=== PATIENT | female | born 2000 | race Caucasian/White ===

== ENCOUNTER 2022-05-18 01:34 | Inpatient (IN) | payer BC ==
[~2022-05-18] VITALS: Ht 322.6 cm; Wt 60.3 kg
[2022-05-18] MEDS ORDERED: NALOXONE HCL 0.4 MG/ML 1ML VIAL IV PRN (01:45)
[2022-05-18 02:21] LABS: BASOPHILS % 0.6 % (0.0-2.0); EOSINOPHILS % 0.8 % (0.0-5.0); HEMOGLOBIN. 13.1 g/dL (12.0-16.0); LYMPHOCYTES % 18.1 % (20.0-50.0); MEAN CORPUSCULAR HEMOGLOBIN 31.1 pg (28.0-32.0); MEAN CORPUSCULAR VOLUME 90.4 fL (81.0-99.0); MEAN PLATELET VOLUME 7.9 fl (7.4-10.4); MONOCYTES % 4.9 % (2.0-8.0); NEUTROPHILS % 75.6 % (40.0-76.0); PLATELET 267 x1000/uL (130-400); RED CELL DISTRIBUTION WIDTH 13.6 % (11.6-14.6)
[2022-05-18 02:31] LABS: CHLORIDE 104 mEq/L (98-107)
[2022-05-18 02:40] LABS: ETHANOL BLOOD 175 mg/dL
[2022-05-18 04:29] LABS: INR 1.1; PROTHROMBIN TIME 11.4 sec (9.6-11.0)
[2022-05-18] MEDS ORDERED: ACETYLCYSTEINE IV NR (05:00)
[2022-05-18] MEDS ORDERED: WATER IV NR (05:00)
[2022-05-18] MEDS ORDERED: DEXT 5% IV NR (05:00)
[2022-05-18 05:29] LABS: CLARITY URINE CLEAR (CLEAR); COLOR URINE YELLOW (YELLOW); KETONES URINE TRACE (NEGATIVE); LEUKOCYTE ESTERASE URINE NEGATIVE (NEGATIVE); NITRITE URINE NEGATIVE (NEGATIVE); OCCULT BLOOD URINE 1+ (NEGATIVE); PROTEIN URINE NEGATIVE (NEGATIVE); SPECIFIC GRAVITY URINE 1.004 (1.005-1.030); UROBILINOGEN URINE 0.2 E.U./dL (0.2-1.0)
[2022-05-18 05:44] LABS: *AMPHETAMINES SCREEN URINE NEGATIVE (NEGATIVE); *BARBITURATES SCREEN URINE NEGATIVE (NEGATIVE); *BENZODIAZEPINES SCREEN URINE NEGATIVE (NEGATIVE); *COCAINE SCREEN URINE NEGATIVE (NEGATIVE); CANNABINOID URINE SCREEN NEGATIVE (NEGATIVE); METHADONE URINE SCREEN NEGATIVE (NEGATIVE); PHENCYCLIDINE URINE SCREEN NEGATIVE (NEGATIVE)
[2022-05-18 05:47] LABS: OPIATES URINE SCREEN PRESUMTIVE POSITIVE (NEGATIVE)
[2022-05-18] MEDS ORDERED: ACETYLCYSTEINE INJ 3,000 MG in DEXT 5% WATER 500 ML IV NR (06:00)
[2022-05-18] MEDS ORDERED: MAGNESIUM/ALUMINUM HYDROXIDE/SIMETHICONE 30ML UDC PO PRN (07:30)
[2022-05-18] MEDS ORDERED: GUAIFENESIN 200MG/10ML SUGAR FREE UDC PO PRN (07:30)
[2022-05-18] MEDS ORDERED: CLONIDINE 0.1MG TABLET PO PRN (07:30)
[2022-05-18] MEDS ORDERED: DOCUSATE SODIUM 100MG CAPSULE PO PRN (07:30)
[2022-05-18] MEDS ORDERED: IPRATROPIUM/ALBUTEROL 0.5-3(2.5)MG/3ML NEB NEB PRN (07:30)
[2022-05-18] MEDS ORDERED: NITROGLYCERIN 0.4MG TABLET SL SL PRN (07:30)
[2022-05-18] MEDS ORDERED: ONDANSETRON HCL 4MG/2ML INJ IV PRN (07:30)
[2022-05-18] MEDS ORDERED: MVI, ADULT NO.1 10 ML, FOLIC ACID 1 MG, THIAMINE HCL 100 MG in SODIUM CHLORIDE 0.9% 1,0... IV ONE ×4 (08:00)
[2022-05-18] MEDS: FAMOTIDINE 20MG TABLET PO SCH ×2 (09:00→21:43)
[2022-05-18] MEDS ORDERED: ACETYLCYSTEINE INJ 6,000 MG in DEXTROSE 5% WATER 1,000 ML IV NR (10:00)
[2022-05-18 12:00] VITALS: BP 123/69
[2022-05-18 16:00] VITALS: BP 110/59
[2022-05-18 16:21] VITALS: BP 123/69
[2022-05-18 20:00] VITALS: BP 104/53
[2022-05-18] MEDS ORDERED: ZOLPIDEM TARTRATE 5MG TABLET PO PRN (21:00)
[2022-05-19] VITALS: BP 118/61
[2022-05-19 04:00] VITALS: BP 98/58
[2022-05-19 08:20] VITALS: BP 112/73
[2022-05-19] MEDS: FAMOTIDINE 20MG TABLET PO SCH ×2 (09:40→21:00)
[2022-05-19 10:51] LABS: BASOPHILS % 0.7 % (0.0-2.0); EOSINOPHILS % 5.6 % (0.0-5.0); HEMOGLOBIN. 13.1 g/dL (12.0-16.0); LYMPHOCYTES % 17.9 % (20.0-50.0); MEAN CORPUSCULAR HEMOGLOBIN 30.6 pg (28.0-32.0); MEAN CORPUSCULAR VOLUME 90.9 fL (81.0-99.0); MEAN PLATELET VOLUME 8.4 fl (7.4-10.4); MONOCYTES % 7.3 % (2.0-8.0); NEUTROPHILS % 68.5 % (40.0-76.0); PLATELET 253 x1000/uL (130-400); RED BLOOD CELL COUNT 4.29 mill/uL (4.2-5.4); RED CELL DISTRIBUTION WIDTH 13.8 % (11.6-14.6)
[2022-05-19 10:53] LABS: CHLORIDE 109 mEq/L (98-107)
[2022-05-19 11:00] LABS: PHOSPHORUS 2.6 mg/dL (2.5-4.9)
[2022-05-19 12:00] VITALS: BP 104/56
[2022-05-19 16:26] VITALS: BP 110/74
[2022-05-20 05:57] LABS: CHLORIDE 111 mEq/L (98-107)
[2022-05-20 09:13] VITALS: BP 100/48
[2022-05-20] MEDS: FAMOTIDINE 20MG TABLET PO SCH (09:26)
== END 2022-05-20 10:10 | disposition home or self-care (01) | DRG 917 ==
LOC: EDBD 01:34 → ER 01:34 → 6EST 04:57 → EDBEDREQSVC 07:36 → ENRESERV 09:16
PROVIDERS: ADMIT Internal Medicine; ATTEND Internal Medicine
DX: T39.1X2A Poisoning by 4-Aminophenol derivatives, intentional self-harm, initial encounter (principal); G92.8 Other toxic encephalopathy; R74.01 Elevation of levels of liver transaminase levels; F32.9 Major depressive disorder, single episode, unspecified; F41.9 Anxiety disorder, unspecified; Z91.51 Personal history of suicidal behavior; Z81.8 Family history of other mental and behavioral disorders; Y92.89 Other specified places as the place of occurrence of the external cause
CPT/HCPCS: 36415; 80053; 80076; 80305; 80307; 80320; 80329; 81003; 82140; 83735; 84100; 84450; 84460; 85025; 93005; 99291; J0132; J3411; J3490; J7030; J7060; J7070; G0480